=== PATIENT | male | born 1985 | race African-American/Black ===

== ENCOUNTER 2016-05-02 16:07 | Emergency (ER) | payer OTHER ==
[2016-05-02] MEDS ORDERED: Ketorolac Tromethamine 30 MG/ML VIAL ONE (16:28)
--- NOTE | 2016-05-02 17:00 | RAD ---
CHEST TWO VIEWS: History: Sharp pain in chest starting two hours prior. Comparison: None. FINDINGS: Lungs are clear. No pneumothorax or effusion. Cardiac silhouette and mediastinal contour is normal . IMPRESSION: No acute cardiopulmonary process. POS: [facility]
== END 2016-05-02 17:13 ==
LOC: NAV ERS 16:07
DX: R07.89 Other chest pain (principal); F41.9 Anxiety disorder, unspecified
CPT/HCPCS: 71020; 85379; 96374; J1885